=== PATIENT | female | born 1990 | race Asian ===

== ENCOUNTER 2018-04-28 09:47 | Inpatient (IN) | payer SELFPAY ==
[~2018-04-28] VITALS: Ht 165.1 cm; Wt 86.2 kg
[2018-04-28] MEDS ORDERED: LR 1,000 ML IV ONE (10:16)
[2018-04-28] MEDS ORDERED: OXYTOCIN/0.9 % SODIUM CHLORIDE 1,000 ML IV SCH ×2 (10:16→18:59)
[2018-04-28] MEDS ORDERED: LR 1,000 ML IV SCH (10:16)
[2018-04-28] MEDS ORDERED: LR 500 ML IV ONE (10:27)
[2018-04-28] MEDS ORDERED: AMPICILLIN SODIUM 2 GM in NS 100 ML IV ONE (10:30)
[2018-04-28] MEDS ORDERED: TERBUTALINE SULFATE 1 MG/ML VIAL SUBCUT ONE (10:30)
[2018-04-28] MEDS ORDERED: NALBUPHINE HCL 10 MG/ML AMP IVP PRN (10:30)
[2018-04-28] MEDS ORDERED: FENT2mCg/mL-ROPIVA0.2%/NS EPID 150 ML EP SCH (10:30)
[2018-04-28 10:33] LABS: BASOPHILS % (AUTO) 0.3 % (0.0-2.0); EOSINOPHILS # (AUTO) 0.3 K/uL (0.0-0.4); EOSINOPHILS % (AUTO) 2.9 % (0.0-4.0); HEMATOCRIT 37.7 % (36-48); HEMOGLOBIN 12.4 g/dL (12.0-16.0); LYMPHOCYTES # (AUTO) 1.4 K/uL (1.0-5.5); LYMPHOCYTES % (AUTO) 13.1 % (20.5-51.5); MEAN CORPUSCULAR HEMOGLOBIN 30 pg (27-31); MEAN CORPUSCULAR HGB CONC 33 % (32-36); MEAN CORPUSCULAR VOLUME 90 fL (79.0-98.0); MONOCYTES # (AUTO) 0.5 K/uL (0.0-1.0); MONOCYTES % (AUTO) 4.4 % (1.7-9.3); NEUTROPHILS # (AUTO) 8.6 K/uL (1.8-7.7); NEUTROPHILS % (AUTO) 79.3 % (40.0-70.0); PLATELET COUNT (AUTO) 242 K/uL (130-430); RED BLOOD CELL COUNT(AUTO) 4.18 MIL/uL (4.2-6.2); RED CELL DISTRIBUTION WIDTH 12.9 % (9.0-15.0); WHITE BLOOD COUNT (AUTO) 10.8 K/uL (4.8-10.8)
[2018-04-28] MEDS ORDERED: LIDOCAINE PF 1% 30ML(POUR BTL) INJ ONE (11:07)
[2018-04-28] MEDS ORDERED: ePHEDrine sulfate 50 MG/ML VIAL IVP ONE (11:07)
[2018-04-28] MEDS ORDERED: ROPIVACAINE 0.2% 100 ML ONE (11:08)
[2018-04-28] MEDS ORDERED: fentaNYL CITRATE/PF 100 MCG/2 ML AMP ONE (11:08)
[2018-04-28] MEDS ORDERED: LIDOCAINE HCL/PF 1% 10 ML AMPUL INJ ONE (11:10)
[2018-04-28 11:44] VITALS: BP_SYST 106
[2018-04-28] MEDS ORDERED: AMPICILLIN SODIUM 1 GM in NS 50 ML IV SCH (14:30)
[2018-04-28] MEDS ORDERED: OXYTOCIN/0.9 % SODIUM CHLORIDE 1,000 ML IV ONE (18:59)
[2018-04-28] MEDS ORDERED: DOCUSATE SODIUM 100 MG CAPSULE PO PRN (19:00)
[2018-04-28] MEDS ORDERED: HYDROCORTISONE 0.5%, 28.35 GM TOPICAL CREAM TP PRN (19:00)
[2018-04-28] MEDS ORDERED: OXYCODONE/ACETAMINOPHEN 5-325 TABLET PO PRN ×2 (19:00)
[2018-04-28] MEDS ORDERED: DERMOPLAST SPRAY TP PRN (19:00)
[2018-04-28] MEDS ORDERED: SENNOSIDES/DOCUSATE SODIUM 1 TAB TABLET(SENOKOT-S) PO PRN (19:00)
[2018-04-28] MEDS ORDERED: LANOLIN 7 GM OINT. TP PRN (19:00)
[2018-04-28] MEDS ORDERED: ANUSOL 1 EA SUPP.RECT (PREPARATION H) RC PRN (19:00)
[2018-04-28] MEDS ORDERED: WITCH HAZEL LEAF 1 MED.PAD MED.PAD TP PRN (19:00)
[2018-04-28] MEDS ORDERED: TEMAZEPAM 15 MG CAPSULE PO PRN (21:00)
[2018-04-29] MEDS: IBUPROFEN 600 MG TABLET PO SCH ×4 (05:41→18:09)
[2018-04-29 06:58] LABS: HEMATOCRIT 22.8 % (36-48); HEMOGLOBIN 7.5 g/dL (12.0-16.0)
[2018-04-29] MEDS: FERROUS SULFATE 325 MG TABLET.DR PO SCH ×2 (17:00→21:00)
[2018-04-30] MEDS: IBUPROFEN 600 MG TABLET PO SCH ×2 (00:03→06:05)
== END 2018-04-30 12:15 | disposition home or self-care (01) | DRG 775 ==
LOC: SPU 09:47 → OBSVTOIN 10:00 → SPU 04-29 12:57
PROVIDERS: ADMIT Obstetrics & Gynecology; ATTEND Obstetrics & Gynecology
PROC: 10D07Z6 Extraction of Products of Conception, Vacuum, Via Natural or Artificial Opening (ICD-10-PCS; principal; 2018-04-28)
PROC: 0W8NXZZ Division of Female Perineum, External Approach (ICD-10-PCS; 2018-04-28)
PROC: 3E0R3BZ Introduction of Anesthetic Agent into Spinal Canal, Percutaneous Approach (ICD-10-PCS; 2018-04-28)
PROC: 00HU33Z Insertion of Infusion Device into Spinal Canal, Percutaneous Approach (ICD-10-PCS; 2018-04-28)
DX: O60.14X0 Preterm labor third trimester with preterm delivery third trimester, not applicable or unspecified (principal); Z3A.36 36 weeks gestation of pregnancy; Z37.0 Single live birth
CPT/HCPCS: 36415; 85018-TC; 85025; 86886; 86900; 86901; G0378; J0290; J2001; J2590; J2795; J3010; J7120